=== PATIENT | male | born 1975 | race Caucasian/White ===

== ENCOUNTER 2018-12-22 13:16 | Inpatient (IN) ==
[2018-12-22] MEDS ORDERED: D5% in Water 1,000 ML IVC PRN ×3 (14:12→14:57)
[2018-12-22] MEDS ORDERED: Dextrose Gel 15 GM/37.5 ML TUBE PO PRN ×6 (14:12→14:57)
[2018-12-22] MEDS ORDERED: *HR* Dextrose 50 % in Water (Syg) 50 ML SYRINGE IVP PRN ×3 (14:12→14:57)
[2018-12-22] MEDS ORDERED: Acetaminophen 325 MG TABLET PO PRN (14:48)
[2018-12-22] MEDS ORDERED: Naloxone 0.4 MG/ML INJ IVP PRN (14:48)
[2018-12-22] MEDS ORDERED: Ondansetron 4 MG/2 ML VIAL IVP PRN (14:48)
--- NOTE | 2018-12-22 14:54 | Internal Med History&Physical ---
Date of Encounter: 12/22/18 Time of Encounter: 14:54 Internal Medicine - H&P: HPI Admitted From: Direct Admit Plans for Post Hospital Care: Home History of present illness: Mr. Hewitt is a 43 year old male hx diabetes and hypertension, diabetic foot ulcer. He was sent as a direct admit from the infectious disease specialists office where he was referred to due to his chronic diabetic foot ulcer and poor wound healing. Patient stated that he had several sessions of doing clinic when he had packing of the wound. He admits to being noncompliant with his diabetes- diet and medications. He could not recall his last A1c but thinks it was quite high. Overall he denies any fevers chills or leg pain. He has been admitted for further workup to rule out osteomyelitis per conversation with the infectious disease specialist we are not to start any antibiotics therapy until evaluated by the podiatry team and a surgical wound culture obtained. Past Med Surg Social Fam HX - Past Medical History Medical history: diabetes Additional medical history: neuropathy in feet Psychiatric history: anxiety - Past Surgical History Additional surgical history: right leg surgery with plates and screws. - Social History Smoking Status: Never smoker Smokeless Tobacco Status: No Alcohol use: none Drug use: none Internal Medicine - H&P: Meds Allergy/AdvReac Type Severity Reaction Status Date / Time doxycycline Allergy Vomiting Verified 12/22/18 13:49 All Systems PM: GENERAL: Denies fever, chills, fatigue or night sweats. DERMATOLOGIC: Denies itch, rash or lesions HEENT: Denies headache, blurriness, diplopia or decreased visual acuity, ear pain, tinnitus, rhinorrhea, sinus tenderness or sore throat RESPIRATORY: Denies SOB, cough, hemoptysis or pleuritic chest pain CARDIOVASCULAR: Denies chest pain, LE edema, palpitation or syncope GASTRO INTESTINAL: Denies cramps, nausea/vomiting, diarrhea or constipation, melena MUSCULOSKELATAL: Denies muscle pain/weakness, joint tenderness/pain or swelling PSYCH: Denies worsening anxiety, or depression NEURO: Denies vertigo, dizziness, or ataxia GENITURINARY: Denies dysuria, nocturia or urinary incontinence - Constitutional Vitals: Temp Pulse Resp BP Pulse Ox 97.6 F 60 17 121/71 96 12/22/18 14:03 12/22/18 14:03 12/22/18 14:03 12/22/18 14:03 12/22/18 14:03 Exam: GENERAL: NAD, A&O x3, pleasant and conversant SKIN: [place] warm dry No skin lesions or rashes, non-jaundiced EYES: EOMI, PERRLA, no sclera icterus HENT: Head atraumatic, no facial asymmetry, frontal and maxillary sinus non- tender, normal hearing, oropharynx and mucosa moist and without any exudates NECK: No cervical lymphadenopathy, trachea midline, thyroid is palpable does not appear enlarged LUNGS: vesicular breath sounds, clear to auscultation, no wheeze, rhonchi, rales or crackles. Non labored respirations HEART: Normal rate and rhythm, no murmurs or rubs ABDOMEN: soft, non-tender, non-distended, bowel sounds x 4 normoactive EXTRMITIES: No LE asymmetry, right foot ulcer noted at the posterior aspect of the right foot with mucopurulent drainage, No LE edema, pedal pulses 1+ and radial pulses 2 + and equal bilaterally NEURO: Speech and comprehension appears intact. PSYCH: Cooperative, non- anxious or irritable, mood and affect is appropriate Internal Med - H&P Results - Labs CBC & Chem 7: 12/22/18 15:02 12/22/18 15:02 - Assessment and Plan (1) Diabetic foot ulcer Current Visit: Yes Status: Acute Assessment and plan: Per conversation with ID specialist there is concern for osteomyelitis as such MRI of the left foot has been ordered, and he will rahter no antibiotics to be started until surgical culture is obtained. Patient is not septic and does not appear to be ill. An offical consult for infectious disease and podiatry placed appreciate the input Qualifiers: Diabetic foot ulcer location: heel Diabetes mellitus type: type 1 Laterality: left Non-pressure ulcer stage: unspecified non-pressure ulcer stage Qualified Code(s): E10.621 - Type 1 diabetes mellitus with foot ulcer; L97.429 - Non-pressure chronic ulcer of left heel and midfoot with unspecified severity (2) Diabetes mellitus with circulatory complication Current Visit: Yes Status: Acute Assessment and plan: Type I diabetic patient will place on insulin per protocol basal short-acting suspect noncompliance check A1c and monitor discussed with patient the importance of glycemic control for proper wound healing Qualifiers: Diabetes mellitus type: type 1 Qualified Code(s): E10.59 - Type 1 diabetes mellitus with other circulatory complications (3) Hypertension Current Visit: Yes Status: Acute Assessment and plan: Normotensive Qualifiers: Hypertension type: essential hypertension Qualified Code(s): I10 - Essential (primary) hypertension (4) DVT prophylaxis Current Visit: Yes Status: Acute Assessment and plan: SCDs given proposed plan for either debridement or wound exploration - Time Spent With Patient Total time spent is greater than 50% in coordination of care (as documented) at patient's floor/unit and/or counseling patient:
[2018-12-22 15:17] LABS: Basophils % 0.8 %; Eosinophils # 0.2 K/mcL (0.0-0.6); Hematocrit 38.4 % (37.5-50.1); Hemoglobin 12.2 g/dL (12.9-16.9); Lymphocytes # 1.6 K/mcL (0.6-4.6); Lymphocytes % 32.7 %; Mean Corpuscular HGB Conc 31.8 g/dL (31.6-35.5); Mean Corpuscular Hemoglobin 26.6 pg (28.0-33.3); Mean Corpuscular Volume 83.8 fL (83.0-100.0); Mean Platelet Volume 9.1 fL (9.4-12.4); Monocytes # 0.4 K/mcL (0.0-1.3); Monocytes % 7.3 %; Neutrophils # 2.8 K/mcL (1.6-8.9); Platelet Count 182 K/mcL (140-400); Red Blood Count 4.58 M/mcL (4.19-5.50); Red Cell Distribution Width 14.5 % (11.5-14.5); Segmented Neutrophils % 56.2 %
[2018-12-22 15:28] LABS: INR 1.1; Prothrombin Time 12.8 Seconds (9.4-12.1)
[2018-12-22 15:35] LABS: Alanine Aminotransferase 18 Units/L (7-52); Albumin 4.2 g/dL (3.5-5.7); Albumin/Globulin Ratio 1.3 (1.1-2.2); Alkaline Phosphatase 74 Units/L (34-104); Aspartate Amino Transferase 17 Units/L (13-39); BUN/Creatinine Ratio 21 (6-26); Bilirubin,Total 0.5 mg/dL (0.3-1.0); Blood Urea Nitrogen 15 mg/dL (6-20); Calcium 9.6 mg/dL (8.6-10.3); Carbon Dioxide 32 mEq/L (23-29); Chloride 98 mEq/L (98-107); Globulin 3.2 g/dL (2.4-3.5); Glucose 347 mg/dL (70-105); Magnesium 1.6 mg/dL (1.6-2.6); Osmolality,Calculated 295 (280-300); Potassium 4.7 mEq/L (3.5-5.1); Sodium 135 mEq/L (136-145); Total Protein 7.4 g/dL (6.4-8.9); eGFR For African Americans > 60 (> 60); eGFR For Non-African Americans > 60 (> 60)
[2018-12-22] MEDS ORDERED: Insulin LISPRO 300 UNITS/3 ML VIAL SQ SCH ×3 (16:30→21:00)
[2018-12-22] MEDS ORDERED: Insulin LISPRO 300 UNITS/3 ML VIAL SQ ONE (18:02)
[2018-12-22] MEDS ORDERED: Insulin DETEMIR 100 UNIT/ML X5UNITS SQ SCH (21:00)
[2018-12-23 04:10] LABS: Basophils % 0.6 %; Eosinophils # 0.2 K/mcL (0.0-0.6); Eosinophils % 3.6 %; Hematocrit 36.4 % (37.5-50.1); Hemoglobin 11.8 g/dL (12.9-16.9); Immature Granulocytes % 0.2 % (0-4); Lymphocytes # 1.4 K/mcL (0.6-4.6); Lymphocytes % 29.4 %; Mean Corpuscular HGB Conc 32.4 g/dL (31.6-35.5); Mean Corpuscular Hemoglobin 26.5 pg (28.0-33.3); Mean Corpuscular Volume 81.8 fL (83.0-100.0); Mean Platelet Volume 8.8 fL (9.4-12.4); Monocytes # 0.4 K/mcL (0.0-1.3); Monocytes % 8.5 %; Neutrophils # 2.7 K/mcL (1.6-8.9); Platelet Count 183 K/mcL (140-400); Red Blood Count 4.45 M/mcL (4.19-5.50); Red Cell Distribution Width 14.5 % (11.5-14.5); Segmented Neutrophils % 57.7 %; White Blood Count 4.7 K/mcL (4.3-11.1)
[2018-12-23 04:31] LABS: BUN/Creatinine Ratio 24 (6-26); Blood Urea Nitrogen 16 mg/dL (6-20); Calcium 9.3 mg/dL (8.6-10.3); Carbon Dioxide 30 mEq/L (23-29); Chloride 103 mEq/L (98-107); Glucose 201 mg/dL (70-105); Magnesium 1.5 mg/dL (1.6-2.6); Osmolality,Calculated 285 (280-300); Potassium 4.3 mEq/L (3.5-5.1); Sodium 134 mEq/L (136-145); eGFR For African Americans > 60 (> 60); eGFR For Non-African Americans > 60 (> 60)
[2018-12-23 06:52] VITALS: BP 114/68
[2018-12-23 07:27] LABS: Estimated Average Glucose 255 mg/dl
[2018-12-23] MEDS ORDERED: Insulin LISPRO 300 UNITS/3 ML VIAL SQ SCH ×3 (08:00→21:00)
--- NOTE | 2018-12-23 11:01 | Podiatry Consult Note ---
Date of Encounter: 12/23/18 Time of Encounter: 11:00 Assessment and Plan (1) Diabetic foot ulcer Current visit: Yes Status: Acute ASSESSMENT: abscess of the left achilles and possible osteomyelitis PLAN: Discussed plan for surgical intervention with patient- need for Incision and Drainage of the abscess of the left heel Patient states this "is not convenient for him and he is leaving" reports that he has things going on and is going to leave States he would rather "come back on his own terms and this is not working for him" Discussed that if he would choose to leave it would be against medical advice and I would not release him to leave Explained that due to the nature of the infection and his uncontrolled diabetes that this infection would likely worsen quicky and could cause loss of limb, sepsis or life. Patient verbalizes understanding and insists upon leaving Discussed with sudha, nurse and . All aware that patient is leaving AMA Sudha states he will be at bedside to send PO antibiotics which patient agrees to. Foot MRI 12/22/18 19:46 IMPRESSION: 1. Thickening of the Achilles tendon with small fluid collection of the posteromedial soft tissues extending to involve the medial aspect of the Achilles tendon. This collection measures 1.0 x 1.3 x 1.3 cm and is highly suspicious for abscess given patient history. Associated partial tearing of the Achilles at this site. 2. Mild patchy edema of the dorsal calcaneus at the Achilles insertion and also along the plantar calcaneus with patchy decreased T1 signal present. Findings suspicious for early changes of osteomyelitis given history of wound. 3. Diffuse subcutaneous edema. Correlate for cellulitis. 4. Intrasubstance signal in the intact deep fibers of the deltoid ligament complex which may reflect sequela of remote sprain. 5. Tenosynovitis of the intact posterior tibialis tendon. 6. Mild hindfoot and midfoot osteoarthritis with small tibiotalar and subtalar effusions. D/ / Marlon Vernon MD / Marlon Vernon MD Interpreting Provider: Marlon Vernon MD Qualifiers: Diabetic foot ulcer location: heel Diabetes mellitus type: type 1 Laterality: left Non-pressure ulcer stage: unspecified non-pressure ulcer stage Qualified Code(s): E10.621 - Type 1 diabetes mellitus with foot ulcer; L97.429 - Non-pressure chronic ulcer of left heel and midfoot with unspecified severity History of Present Illness HPI: Mr. Hewitt is a 43 year old male hx diabetes and hypertension, diabetic foot ulcer. He was sent as a direct admit from the infectious disease specialists office where he was referred to due to his chronic diabetic foot ulcer and poor wound healing. Per reports from ID, patient failed outpatient oral antibiotic therapy. He was scheduled to be evaluated for wound in podiatry office on 12/15 and n/s appointment. Patient reports he has been packing wound however He admits to being noncompliant with his diabetes-diet and medications. Overall he denies any fevers chills or leg pain. Podiatry has been consulted to manage wound, possible abscess and osteomyelitis Past Med Surg Social Fam HX - Past Medical History Medical history: diabetes Additional medical history: neuropathy in feet Psychiatric history: anxiety - Past Surgical History Additional surgical history: right leg surgery with plates and screws. - Social History Smoking Status: Never smoker Smokeless Tobacco Status: No Alcohol use: none Drug use: none Medications and Allergies Allergy/AdvReac Type Severity Reaction Status Date / Time doxycycline Allergy Vomiting Verified 12/22/18 13:49 All Systems Reviewed: as per HPI Physical Exam - Constitutional Vitals: Temp Pulse Resp BP Pulse Ox 97.6 F 76 15 114/68 95 12/23/18 06:48 12/23/18 06:48 12/23/18 06:48 12/23/18 06:48 12/23/18 06:48 Exam: Patient refused exam as he states he is leaving Results - Labs Result Diagrams: 12/23/18 04:00 12/23/18 04:00 Labs: Abnormal lab results Hgb 11.8 g/dL (12.9-16.9) L 12/23/18 04:00 Hct 36.4 % (37.5-50.1) L 12/23/18 04:00 MCV 81.8 fL (83.0-100.0) L 12/23/18 04:00 MCH 26.5 pg (28.0-33.3) L 12/23/18 04:00 MPV 8.8 fL (9.4-12.4) L 12/23/18 04:00 ESR 27 mm/hr (0-10) H 12/23/18 07:40 PT 12.8 Seconds (9.4-12.1) H 12/22/18 15:02 Sodium 134 mEq/L (136-145) L 12/23/18 04:00 Carbon Dioxide 30 mEq/L (23-29) H 12/23/18 04:00 Creatinine 0.67 mg/dL (0.70-1.30) L 12/23/18 04:00 Glucose 201 mg/dL (70-105) H 12/23/18 04:00 POC Glucose 114 mg/dL (70-99) H 12/23/18 00:48 Hemoglobin A1c 10.5 % (-5.6) H 12/23/18 04:00 Magnesium 1.5 mg/dL (1.6-2.6) L 12/23/18 04:00 H & H 12/22/18 12/23/18 Range/Units 15:02 04:00 Hgb 12.2 L 11.8 L (12.9-16.9) g/dL Hct 38.4 36.4 L (37.5-50.1) % All other labs normal. Consult Discharge Plan - Plan Referrals: Denisse Guzman [Primary Care Provider] -
--- NOTE | 2018-12-23 12:16 | Discharge Summary ---
- NOTES TO OUTPATIENT PROVIDER Notes to Outpatient Provider: Left AMA Date of Encounter: 12/23/18 Time of Encounter: 09:30 - Discharge Diagnosis (1) Osteomyelitis of ankle or foot, acute Priority: Primary Status: Acute Qualifiers: Laterality: left Qualified Code(s): M86.172 - Other acute osteomyelitis, left ankle and foot (2) Diabetic foot ulcer Priority: Secondary Status: Acute Qualifiers: Diabetic foot ulcer location: heel Diabetes mellitus type: type 1 Laterality: left Non-pressure ulcer stage: unspecified non-pressure ulcer stage Qualified Code(s): E10.621 - Type 1 diabetes mellitus with foot ulcer; L97.429 - Non-pressure chronic ulcer of left heel and midfoot with unspecified severity (3) Diabetes mellitus with circulatory complication Priority: Secondary Status: Acute Qualifiers: Diabetes mellitus type: type 1 Qualified Code(s): E10.59 - Type 1 diabetes mellitus with other circulatory complications (4) Hypertension Priority: Secondary Status: Acute Qualifiers: Hypertension type: essential hypertension Qualified Code(s): I10 - Essential (primary) hypertension (5) DVT prophylaxis Priority: Secondary Status: Acute Hospital course: Mr. Hewitt is a 43 year old male with hx diabetes and hypertension who was directly admitted from ID clinic due to the concern of infected L foot ulcer. MRI showed thickening of the Achilles tendon with adjacent abscess as well as findings compatible with early changes of osteomyelitis. He also had tenosynovitis of posterior tibialis tendon. Unfortunately, after discussing with podiatry, he declined to undergo I&D of the abscess or bone biopsy and also refused to be on IV abx. Prior to picking up the scripts for PO Abx, he left AMA after being informed of the risk of worsening infection, sepsis, possible amputation, or . Discharge discussed with: patient, medical social consultant - Time Spent with Patient Total time spent providing and/or coordinating discharge services: 26 mins - Discharge Medications Allergies/Adverse Reactions: Allergy/AdvReac Type Severity Reaction Status Date / Time doxycycline Allergy Vomiting Verified 12/22/18 13:49 Date of admission: 12/22/18 14:48 Primary care physician: Denisse Guzman Consults: 12/22/18 13:53 Consult to Podiatry [CONS] Routine Consulting Provider: [facility] Reason for Consult: non-healing abscess left foot Time Notified: 13:54 Call Completed: Yes 12/22/18 14:51 Consult to Infectious Diseases [CONS] Routine Consulting Provider: [facility] Reason for Consult: Established patient with diabetic foot ulcer Time Notified: 14:30 Call Completed: Yes - Constitutional Vitals: Temp Pulse Resp BP Pulse Ox 97.6 F 76 15 114/68 95 12/23/18 06:48 12/23/18 06:48 12/23/18 06:48 12/23/18 06:48 12/23/18 06:48 Exam: GENERAL: not in distress LUNGS: clear to auscultation HEART: Normal rate and rhythm, no murmurs or rubs ABDOMEN: soft, non-tender, non-distended, bowel sounds x 4 normoactive EXTRMITIES: open ulcer in the L achilles tendon with purulent drainage. NEURO: non-focal - Patient Status Disposition: Left Against Medical Advice Condition: Serious - Discharge Instructions Instructions: Diabetes Mellitus Type 2 in Adults (DC), Diabetic Foot Care (DC), Chronic Hypertension (DC) Follow Up With: Denisse Guzman [Primary Care Provider] -
--- NOTE | 2018-12-23 12:16 | Infectious Disease Consult ---
Infectious Disease-Consult - Encounter Date/Time Date of Encounter: 12/23/18 Time of Encounter: 11:00 - Data of Consult Patient: known to practice within the last 3 years Reason for consult: foot infection Consult date: 12/23/18 Requesting Physician: Kraig Forrester MD Primary Care Provider: Denisse Guzman - HPI HPI: Patient signed out AGAINST MEDICAL ADVICE before I could see him. - Results CBC & Chem 7: 12/23/18 04:00 12/23/18 04:00 - Exam Vitals: Temp Pulse Resp BP Pulse Ox 97.6 F 76 15 114/68 95 12/23/18 06:48 12/23/18 06:48 12/23/18 06:48 12/23/18 06:48 12/23/18 06:48 Gabapentin 800 mg PO TID 12/23/18 [History] Gabapentin [Neurontin] 100 mg PO TID 12/23/18 [History] Insulin Glargine [Lantus] 28 units SQ QAM 12/23/18 [History] Insulin LISPRO [HumaLOG] 0 units SQ TID 12/23/18 [History] Lisinopril [Zestril] 10 mg PO DAILY 12/23/18 [History] Montelukast [Singulair] 10 mg PO QPM 12/23/18 [History] Allergy/AdvReac Type Severity Reaction Status Date / Time doxycycline Allergy Vomiting Verified 12/23/18 12:47 Past Med Surg Social Fam HX - Past Medical History Medical history: diabetes Additional medical history: neuropathy in feet Psychiatric history: anxiety - Past Surgical History Additional surgical history: right leg surgery with plates and screws. - Social History Smoking Status: Never smoker Smokeless Tobacco Status: No Alcohol use: none Drug use: none Consult Discharge Plan - Plan Instructions: Diabetic Foot Care (DC), Diabetes Mellitus Type 2 in Adults (DC), Chronic Hypertension (DC) Referrals: Denisse Guzman [Primary Care Provider] -
[2018-12-23] MEDS ORDERED: Insulin DETEMIR 100 UNIT/ML X5UNITS SQ SCH (21:00)
== END 2018-12-23 11:50 | disposition left against medical advice (07) | DRG 344 ==
LOC: 3ANU → SUATTDRO 14:48
PROVIDERS: ADMIT Pharmacist; ATTEND Internal Medicine

== ENCOUNTER 2018-12-23 12:17 | Observation (INO) ==
[2018-12-23] MEDS ORDERED: 0.9 % Sodium Chloride 1,000 ML IVC ONE ×2 (12:28→13:42)
[2018-12-23 13:00] LABS: VBG HCO3 25 mEq/L (21-27); VBG PCO2 46 mmHg (41-51); VBG PH 7.35 pH Units (7.32-7.42); VBG PO2 36 mmHg (25-50)
[2018-12-23 13:01] LABS: Basophils # 0.1 K/mcL (0.0-0.2); Basophils % 0.5 %; Eosinophils # 0.1 K/mcL (0.0-0.6); Eosinophils % 1.1 %; Hematocrit 40.7 % (37.5-50.1); Hemoglobin 13.1 g/dL (12.9-16.9); Immature Granulocytes % 0.4 % (0-4); Lymphocytes % 17.5 %; Mean Corpuscular HGB Conc 32.2 g/dL (31.6-35.5); Mean Corpuscular Hemoglobin 26.6 pg (28.0-33.3); Mean Corpuscular Volume 82.7 fL (83.0-100.0); Mean Platelet Volume 9.3 fL (9.4-12.4); Monocytes # 0.5 K/mcL (0.0-1.3); Monocytes % 4.2 %; Neutrophils # 8.6 K/mcL (1.6-8.9); Platelet Count 269 K/mcL (140-400); Red Blood Count 4.92 M/mcL (4.19-5.50); Red Cell Distribution Width 14.6 % (11.5-14.5); Segmented Neutrophils % 76.3 %
[2018-12-23 13:03] LABS: White Blood Count 11.3 K/mcL (4.3-11.1)
[2018-12-23 13:20] LABS: Acetaminophen < 10 mcg/mL (10-20); Alanine Aminotransferase 19 Units/L (7-52); Albumin 4.2 g/dL (3.5-5.7); Albumin/Globulin Ratio 1.3 (1.1-2.2); Alkaline Phosphatase 70 Units/L (34-104); Aspartate Amino Transferase 16 Units/L (13-39); BUN/Creatinine Ratio 20 (6-26); Bilirubin,Total 0.8 mg/dL (0.3-1.0); Blood Urea Nitrogen 20 mg/dL (6-20); C-Reactive Protein < 5 mg/L (Less than 10); Carbon Dioxide 25 mEq/L (23-29); Chloride 97 mEq/L (98-107); Globulin 3.3 g/dL (2.4-3.5); Glucose 377 mg/dL (70-105); Osmolality,Calculated 300 (280-300); Potassium 3.8 mEq/L (3.5-5.1); Salicylate < 2.5 mg/dL (15.0-30.0); Sodium 136 mEq/L (136-145); Total Protein 7.5 g/dL (6.4-8.9); Troponin I < 0.03 ng/mL (< 0.04); eGFR For African Americans > 60 (> 60); eGFR For Non-African Americans > 60 (> 60)
[2018-12-23 13:21] LABS: INR 1.2; Prothrombin Time 13.5 Seconds (9.4-12.1)
[2018-12-23] MEDS ORDERED: Ondansetron 4 MG/2 ML VIAL IVP ONE (13:22)
[2018-12-23 13:24] LABS: Activated Partial Thrombo Time 28.2 Seconds (26.0-36.0)
[2018-12-23] MEDS ORDERED: Ondansetron 4 MG/2 ML VIAL ONE (13:25)
[2018-12-23] MEDS ORDERED: Vancomycin (wt based) 1,000 MG VIAL IV ONE (13:42)
[2018-12-23] MEDS ORDERED: Piperacillin/Tazobactam 3.375 GM in 0.9 % Sodium Chloride Mini Bag 100 ML IVPB ONE (13:42)
[2018-12-23] MEDS ORDERED: 0.9 % Sodium Chloride 500 ML IVC ONE (13:52)
[2018-12-23] MEDS ORDERED: Aspirin 325 MG TABLET PO ONE (14:05)
[2018-12-23] MEDS ORDERED: Naloxone 0.4 MG/ML INJ IVP PRN (14:39)
[2018-12-23] MEDS ORDERED: *HR* Dextrose 50 % in Water (Syg) 50 ML SYRINGE IVP PRN (14:56)
[2018-12-23] MEDS ORDERED: Dextrose Gel 15 GM/37.5 ML TUBE PO PRN ×2 (14:56)
[2018-12-23] MEDS ORDERED: D5% in Water 1,000 ML IVC PRN (14:56)
[2018-12-23] MEDS ORDERED: Insulin Regular, Human 100 UNIT/ML IV SCH (15:00)
[2018-12-23] MEDS ORDERED: Insulin Human Regular 8 UNIT in 0.9 % Sodium Chloride 10 ML IV ONE (15:30)
[2018-12-23] MEDS: Gabapentin 100 MG CAPSULE PO SCH ×2 (16:19→20:17)
[2018-12-23] MEDS: Gabapentin 400 MG CAPSULE PO SCH ×2 (16:19→20:17)
[2018-12-23] MEDS: Ringers Solution, Lactated 1,000 ML IVC SCH (16:23)
[2018-12-23] MEDS ORDERED: Insulin LISPRO 300 UNITS/3 ML VIAL SQ SCH ×2 (16:30→17:00)
[2018-12-23 18:09] LABS: Bilirubin,Urine Negative (Negative); Blood,Urine Negative (Negative); Clarity,Urine Clear (Clear); Color,Urine Yellow (Yellow); Glucose,Urine (UA) >=1000 mg/dL (Normal); Ketones,Urine 40 mg/dL (Negative); Leukocyte Esterase,Urine Negative (Negative); Nitrite,Urine Negative (Negative); Protein,Urine Trace mg/dL (Neg-Trace); Specific Gravity,Urine 1.022 (1.010-1.025); Urobilinogen,Urine Normal (Normal)
[2018-12-23 18:28] LABS: Amphetamine Screen,Urine Negative ng/mL (Cutoff=1000); Barbiturate Screen,Urine Negative ng/mL (Cutoff=200); Benzodiazepines Screen,Urine Negative ng/mL (Cutoff=200); Cannabinoid Screen,Urine Negative ng/mL (Cutoff = 50); Cocaine Screen,Urine Negative ng/mL (Cutoff= 300); Opiate Screen,Urine Negative ng/mL (Cutoff=300); Phencyclidine Screen,Urine Negative ng/mL (Cutoff=25)
[2018-12-23] MEDS: traMADol 50 MG TABLET PO PRN (20:45)
[2018-12-23] MEDS ORDERED: Insulin DETEMIR 100 UNIT/ML X5UNITS SQ SCH (21:00)
[2018-12-23] MEDS: Piperacillin/Tazobactam 3.375 GM in 0.9 % Sodium Chloride Mini Bag 100 ML IVPB SCH (23:07)
[2018-12-24 03:46] LABS: BUN/Creatinine Ratio 27 (6-26); Blood Urea Nitrogen 23 mg/dL (6-20); Calcium 8.8 mg/dL (8.6-10.3); Carbon Dioxide 20 mEq/L (23-29); Chloride 100 mEq/L (98-107); Glucose 408 mg/dL (70-105); Magnesium 1.8 mg/dL (1.6-2.6); Osmolality,Calculated 293 (280-300); Potassium 4.6 mEq/L (3.5-5.1); Sodium 131 mEq/L (136-145); eGFR For African Americans > 60 (> 60); eGFR For Non-African Americans > 60 (> 60)
[2018-12-24] MEDS: Ringers Solution, Lactated 1,000 ML IVC SCH (05:20)
[2018-12-24] MEDS: Insulin LISPRO 300 UNITS/3 ML VIAL SQ SCH ×2 (05:54→11:58)
[2018-12-24 06:00] LABS: Basophils % 0.6 %; Eosinophils # 0.1 K/mcL (0.0-0.6); Eosinophils % 1.4 %; Hematocrit 31.9 % (37.5-50.1); Immature Granulocytes % 0.4 % (0-4); Lymphocytes # 1.8 K/mcL (0.6-4.6); Mean Corpuscular HGB Conc 33.2 g/dL (31.6-35.5); Mean Corpuscular Volume 81.2 fL (83.0-100.0); Mean Platelet Volume 9.1 fL (9.4-12.4); Monocytes # 0.6 K/mcL (0.0-1.3); Monocytes % 8.5 %; Neutrophils # 4.4 K/mcL (1.6-8.9); Platelet Count 171 K/mcL (140-400); Red Blood Count 3.93 M/mcL (4.19-5.50); Red Cell Distribution Width 14.4 % (11.5-14.5); Segmented Neutrophils % 63.1 %; White Blood Count 6.9 K/mcL (4.3-11.1)
[2018-12-24] MEDS ORDERED: *HR* Heparin 5,000 UNIT/ML VIAL SQ SCH (06:00)
[2018-12-24 06:03] LABS: Hemoglobin 10.6 g/dL (12.9-16.9)
[2018-12-24] MEDS ORDERED: Acetaminophen IV 500 MG/50 ML INFUS..BTL IVPB ONE (06:03)
[2018-12-24] MEDS: Piperacillin/Tazobactam 3.375 GM in 0.9 % Sodium Chloride Mini Bag 100 ML IVPB SCH (08:10)
[2018-12-24] MEDS: Gabapentin 400 MG CAPSULE PO SCH (08:17)
[2018-12-24] MEDS: Gabapentin 100 MG CAPSULE PO SCH (08:17)
[2018-12-24 11:23] VITALS: BP 136/37
[2018-12-24] MEDS: traMADol 50 MG TABLET PO PRN (12:02)
[2018-12-24] MEDS ORDERED: Aminoglycoside Consult 1 EACH MC ONE (14:43)
== END 2018-12-24 14:44 | disposition other institution (70) ==
LOC: EMEROOARM 12:17 → 3BNU 12:17 → SUATTDRO 13:54 → 3BNU 14:35
PROVIDERS: ADMIT Internal Medicine; ATTEND Internal Medicine

== ENCOUNTER 2021-02-23 02:07 | Inpatient (IN) ==
[2021-02-23] MEDS ORDERED: Naloxone 0.4 MG/ML INJ IVP PRN (04:31)
[2021-02-23] MEDS ORDERED: Melatonin 3 MG TABLET PO PRN (04:31)
[2021-02-23] MEDS ORDERED: *HR* Dextrose 50 % in Water (Syg) 50 ML SYRINGE IVP PRN (04:33)
[2021-02-23] MEDS ORDERED: D5% in Water 1,000 ML IVC PRN (04:33)
[2021-02-23] MEDS ORDERED: Dextrose Gel 15 GM/37.5 ML TUBE PO PRN ×2 (04:33)
[2021-02-23] MEDS: *HR* OxyCODONE Immed Rel 5 MG TABLET PO PRN ×4 (05:32→20:23)
[2021-02-23] MEDS: *HR* Heparin 5,000 UNIT/ML VIAL SQ SCH ×2 (05:33→16:54)
[2021-02-23] MEDS: Insulin LISPRO 300 UNITS/3 ML VIAL SUBQ SCH ×3 (05:43→16:54)
[2021-02-23] MEDS ORDERED: Acetaminophen 325 MG TABLET PO PRN (06:00)
[2021-02-23 08:55] LABS: Basophils % 0.5 %; Eosinophils # 0.1 K/mcL (0.0-0.6); Hematocrit 32.8 % (37.5-50.1); Immature Granulocytes % 0.3 % (0-4); Lymphocytes # 1.4 K/mcL (0.6-4.6); Lymphocytes % 21.5 %; Mean Corpuscular HGB Conc 33.5 g/dL (31.6-35.5); Mean Corpuscular Volume 80.4 fL (83.0-100.0); Monocytes # 0.9 K/mcL (0.0-1.3); Monocytes % 13.7 %; Neutrophils # 4.1 K/mcL (1.6-8.9); Platelet Count 197 K/mcL (140-400); Red Blood Count 4.08 M/mcL (4.19-5.50); Red Cell Distribution Width 13.3 % (11.5-14.5); White Blood Count 6.7 K/mcL (4.3-11.1)
[2021-02-23] MEDS: *HR* HYDROcodone/Acet 5/325 mg TABLET PO PRN ×2 (09:12→18:31)
[2021-02-23 10:55] LABS: BUN/Creatinine Ratio 15 (6-26); Blood Urea Nitrogen 11 mg/dL (6-20); C-Reactive Protein 150 mg/L (Less than 10); Calcium 9.2 mg/dL (8.6-10.3); Carbon Dioxide 30 mEq/L (23-29); Chloride 100 mEq/L (98-107); Glucose 98 mg/dL (70-105); Osmolality,Calculated 283 (280-300); Potassium 3.8 mEq/L (3.5-5.1); Sodium 137 mEq/L (136-145); eGFR For African Americans > 60 (> 60); eGFR For Non-African Americans > 60 (> 60)
[2021-02-23] MEDS: Piperacillin/Tazobactam 3.375 GM in 0.9 % Sodium Chloride Mini Bag 100 ML IVPB SCH ×2 (11:07→20:23)
[2021-02-23] MEDS: Vancomycin 1,250 MG/262.5 ML IV.SOLN IVPB SCH (11:08)
[2021-02-23] MEDS ORDERED: Ketorolac 30 MG/ML VIAL IVP ONE (11:27)
[2021-02-23 16:38] LABS: Source,Synovial Fluid right knee
[2021-02-23 17:07] LABS: Appearance,Synovial Fluid Hazy (Clear-Hazy); Color,Synovial Fluid Straw (Straw)
[2021-02-23 21:26] LABS: Lyme Disease Total Antibody Negative (Negative)
[2021-02-23 21:39] LABS: Rheumatoid Factor < 10 IU/mL (Less than 14)
[2021-02-23] MEDS ORDERED: Alteplase (Cathflo) 10 MG in 0.9 % Sodium Chloride 50 ML IVP ONE (22:07)
[2021-02-23] MEDS ORDERED: *HR* Alteplase (Cathflo) 2 MG VIAL IVP ONE (22:30)
[2021-02-23] MEDS ORDERED: Water for inj. (sterile) 10 ML ONE (22:39)
[2021-02-23] MEDS ORDERED: 0.9 % Sodium Chloride 500 ML ONE (23:31)
[2021-02-24] MEDS: *HR* OxyCODONE Immed Rel 5 MG TABLET PO PRN ×5 (00:16→21:15)
[2021-02-24] MEDS ORDERED: *HR* Alteplase (Cathflo) 2 MG VIAL IVP ONE (00:35)
[2021-02-24] MEDS: Insulin LISPRO 300 UNITS/3 ML VIAL SUBQ SCH ×5 (00:46→21:39)
[2021-02-24] MEDS ORDERED: 0.9 % Sodium Chloride 500 ML IVC ONE (00:55)
[2021-02-24] MEDS: Vancomycin 1,250 MG/262.5 ML IV.SOLN IVPB SCH ×2 (02:11→15:50)
[2021-02-24 02:26] LABS: Basophils % 0.4 %; Eosinophils # 0.1 K/mcL (0.0-0.6); Eosinophils % 2.1 %; Hematocrit 29.3 % (37.5-50.1); Hemoglobin 9.9 g/dL (12.9-16.9); Immature Granulocytes % 0.2 % (0-4); Lymphocytes # 1.6 K/mcL (0.6-4.6); Lymphocytes % 28.6 %; Mean Corpuscular HGB Conc 33.8 g/dL (31.6-35.5); Mean Corpuscular Hemoglobin 27.5 pg (28.0-33.3); Mean Corpuscular Volume 81.4 fL (83.0-100.0); Mean Platelet Volume 9.2 fL (9.4-12.4); Monocytes # 0.6 K/mcL (0.0-1.3); Neutrophils # 3.4 K/mcL (1.6-8.9); Platelet Count 217 K/mcL (140-400); Red Cell Distribution Width 12.9 % (11.5-14.5); Segmented Neutrophils % 58.7 %; White Blood Count 5.7 K/mcL (4.3-11.1)
[2021-02-24 02:43] LABS: BUN/Creatinine Ratio 19 (6-26); Blood Urea Nitrogen 14 mg/dL (6-20); Calcium 8.5 mg/dL (8.6-10.3); Carbon Dioxide 29 mEq/L (23-29); Chloride 99 mEq/L (98-107); Glucose 292 mg/dL (70-105); Osmolality,Calculated 285 (280-300); Potassium 3.9 mEq/L (3.5-5.1); Sodium 132 mEq/L (136-145); eGFR For African Americans > 60 (> 60); eGFR For Non-African Americans > 60 (> 60)
[2021-02-24] MEDS: Piperacillin/Tazobactam 3.375 GM in 0.9 % Sodium Chloride Mini Bag 100 ML IVPB SCH ×3 (03:16→23:56)
[2021-02-24] MEDS: *HR* Heparin 5,000 UNIT/ML VIAL SQ SCH ×2 (05:12→17:24)
[2021-02-24] MEDS ORDERED: Insulin DETEMIR 100 UNIT/ML X5UNITS SUBQ SCH (10:30)
[2021-02-24] MEDS ORDERED: Lidocaine/EPI 1:100k 2% 20 ML VIAL ONE (10:52)
[2021-02-24] MEDS ORDERED: Lidocaine/EPI 1:100k 1% 20 ML VIAL ONE (10:54)
[2021-02-24] MEDS ORDERED: *HR* Midazolam HCl 2 MG/2 ML VIAL ONE (11:07)
[2021-02-24] MEDS ORDERED: *HR* FentaNYL (PF) 100 MCG/2 ML VIAL ONE (11:07)
[2021-02-24] MEDS ORDERED: Lidocaine -MPF 2% 5 ML VIAL ONE (11:07)
[2021-02-24] MEDS ORDERED: Famotidine 20 MG/2 ML VIAL IVP ONE (11:12)
[2021-02-24] MEDS ORDERED: Acetaminophen IV 1,000 MG/100 ML BAG IVPB ONE (11:12)
[2021-02-24] MEDS ORDERED: Insulin Human Regular 3 UNIT in 0.9 % Sodium Chloride 10 ML IV ONE (11:25)
[2021-02-24] MEDS ORDERED: *HR* EPINEPHrine 30 MG/30 ML MDV ONE (12:01)
[2021-02-24] MEDS ORDERED: Ondansetron 4 MG/2 ML VIAL IVP PRN (12:23)
[2021-02-24] MEDS ORDERED: *HR* OxyCODONE Immed Rel 5 MG TABLET PO PRN (12:23)
[2021-02-24] MEDS ORDERED: *HR* HYDROmorphone PF 0.5 MG/0.5 ML SYRINGE IVP PRN (12:23)
[2021-02-24] MEDS ORDERED: Ondansetron 4 MG/2 ML VIAL ONE (13:01)
[2021-02-24] MEDS ORDERED: *HR* HYDROMORPHONE 2 MG/ML VIAL ONE (13:10)
[2021-02-24] MEDS ORDERED: Lidocaine/EPI 1:100k 1% 50 ML VIAL ONE (13:18)
[2021-02-24] MEDS ORDERED: Vancomycin 1,250 MG/262.5 ML IV.SOLN IVPB SCH (14:00)
[2021-02-24 14:48] LABS: Source,Synovial Fluid RIGHT KNEE
[2021-02-24 15:22] LABS: Appearance,Synovial Fluid Cloudy (Clear-Hazy); Color,Synovial Fluid Straw (Straw)
[2021-02-24] MEDS ORDERED: Perflutren Lipid Microsphere 1.3 ML in 0.9 % Sodium Chloride 8.7 ML IVP PRN (16:11)
[2021-02-24] MEDS: Ringers Solution, Lactated 1,000 ML IVC SCH (19:46)
[2021-02-25] MEDS: *HR* OxyCODONE Immed Rel 5 MG TABLET PO PRN ×6 (01:23→23:57)
[2021-02-25 05:18] LABS: Hematocrit 31.9 % (37.5-50.1); Hemoglobin 10.6 g/dL (12.9-16.9); Immature Granulocytes % 0.4 % (0-4); Lymphocytes # 1.1 K/mcL (0.6-4.6); Lymphocytes % 14.1 %; Mean Corpuscular HGB Conc 33.2 g/dL (31.6-35.5); Mean Corpuscular Hemoglobin 27.7 pg (28.0-33.3); Mean Corpuscular Volume 83.3 fL (83.0-100.0); Mean Platelet Volume 9.3 fL (9.4-12.4); Monocytes # 0.3 K/mcL (0.0-1.3); Neutrophils # 6.4 K/mcL (1.6-8.9); Platelet Count 277 K/mcL (140-400); Red Blood Count 3.83 M/mcL (4.19-5.50); Red Cell Distribution Width 12.9 % (11.5-14.5); Segmented Neutrophils % 81.5 %; White Blood Count 7.8 K/mcL (4.3-11.1)
[2021-02-25 05:52] LABS: BUN/Creatinine Ratio 26 (6-26); Blood Urea Nitrogen 22 mg/dL (6-20); Calcium 8.5 mg/dL (8.6-10.3); Carbon Dioxide 21 mEq/L (23-29); Chloride 96 mEq/L (98-107); Glucose 463 mg/dL (70-105); Osmolality,Calculated 294 (280-300); Potassium 4.7 mEq/L (3.5-5.1); Sodium 130 mEq/L (136-145); Vancomycin,Trough 7 mcg/mL (5-10); eGFR For African Americans > 60 (> 60); eGFR For Non-African Americans > 60 (> 60)
[2021-02-25] MEDS: *HR* Heparin 5,000 UNIT/ML VIAL SQ SCH ×2 (06:05→17:01)
[2021-02-25] MEDS: Vancomycin 1,500 MG/265 ML IV.SOLN IVPB SCH ×2 (06:26→19:10)
[2021-02-25] MEDS: Vancomycin 1,250 MG/262.5 ML IV.SOLN IVPB SCH (06:36)
[2021-02-25] MEDS ORDERED: Ringers Solution, Lactated 500 ML IVC ONE ×2 (08:37→09:00)
[2021-02-25] MEDS: Piperacillin/Tazobactam 3.375 GM in 0.9 % Sodium Chloride Mini Bag 100 ML IVPB SCH ×2 (09:18→17:00)
[2021-02-25] MEDS: Insulin LISPRO 300 UNITS/3 ML VIAL SUBQ SCH ×4 (09:21→20:57)
[2021-02-25] MEDS: Insulin DETEMIR 100 UNIT/ML X5UNITS SUBQ SCH (10:29)
[2021-02-25] MEDS: *HR* HYDROcodone/Acet 5/325 mg TABLET PO PRN ×2 (12:45→20:56)
[2021-02-25] MEDS: Ringers Solution, Lactated 1,000 ML IVC SCH (12:48)
[2021-02-26] MEDS: *HR* HYDROcodone/Acet 5/325 mg TABLET PO PRN ×2 (02:55→20:42)
[2021-02-26 03:43] LABS: BUN/Creatinine Ratio 24 (6-26); Blood Urea Nitrogen 17 mg/dL (6-20); Calcium 8.4 mg/dL (8.6-10.3); Carbon Dioxide 33 mEq/L (23-29); Chloride 98 mEq/L (98-107); Glucose 349 mg/dL (70-105); Osmolality,Calculated 291 (280-300); Potassium 4.4 mEq/L (3.5-5.1); Sodium 133 mEq/L (136-145); eGFR For African Americans > 60 (> 60); eGFR For Non-African Americans > 60 (> 60)
[2021-02-26 03:44] LABS: Basophils % 0.6 %; Eosinophils # 0.2 K/mcL (0.0-0.6); Eosinophils % 2.1 %; Hematocrit 30.1 % (37.5-50.1); Hemoglobin 9.8 g/dL (12.9-16.9); Immature Granulocytes % 0.4 % (0-4); Lymphocytes # 2.6 K/mcL (0.6-4.6); Lymphocytes % 35.2 %; Mean Corpuscular HGB Conc 32.6 g/dL (31.6-35.5); Mean Corpuscular Hemoglobin 26.8 pg (28.0-33.3); Mean Corpuscular Volume 82.2 fL (83.0-100.0); Mean Platelet Volume 9.3 fL (9.4-12.4); Monocytes # 0.5 K/mcL (0.0-1.3); Monocytes % 6.6 %; Platelet Count 329 K/mcL (140-400); Red Blood Count 3.66 M/mcL (4.19-5.50); Segmented Neutrophils % 55.1 %; White Blood Count 7.3 K/mcL (4.3-11.1)
[2021-02-26] MEDS: *HR* OxyCODONE Immed Rel 5 MG TABLET PO PRN ×5 (05:40→22:23)
[2021-02-26] MEDS: Vancomycin 1,500 MG/265 ML IV.SOLN IVPB SCH ×2 (05:41→20:41)
[2021-02-26] MEDS: *HR* Heparin 5,000 UNIT/ML VIAL SQ SCH (05:48)
[2021-02-26] MEDS: Insulin LISPRO 300 UNITS/3 ML VIAL SUBQ SCH ×4 (07:38→20:43)
[2021-02-26] MEDS: Insulin DETEMIR 100 UNIT/ML X5UNITS SUBQ SCH (09:13)
[2021-02-26] MEDS ORDERED: Ketorolac 30 MG/ML VIAL IVP ONE (09:43)
[2021-02-26] MEDS: Ringers Solution, Lactated 1,000 ML IVC SCH (17:25)
[2021-02-26] MEDS ORDERED: Vancomycin 1,750 MG/517.5 ML IV.SOLN IVPB SCH (21:00)
[2021-02-27] MEDS: *HR* OxyCODONE Immed Rel 5 MG TABLET PO PRN ×5 (04:57→23:09)
[2021-02-27] MEDS: *HR* Enoxaparin 40 MG/0.4 ML SYRINGE SQ SCH (04:58)
[2021-02-27] MEDS: Insulin DETEMIR 100 UNIT/ML X5UNITS SUBQ SCH (09:33)
[2021-02-27] MEDS: Insulin LISPRO 300 UNITS/3 ML VIAL SUBQ SCH ×4 (09:33→21:01)
[2021-02-27 11:03] LABS: BUN/Creatinine Ratio 17 (6-26); Blood Urea Nitrogen 12 mg/dL (6-20); Calcium 9.1 mg/dL (8.6-10.3); Carbon Dioxide 32 mEq/L (23-29); Chloride 96 mEq/L (98-107); Glucose 395 mg/dL (70-105); Osmolality,Calculated 292 (280-300); Potassium 4.4 mEq/L (3.5-5.1); Sodium 133 mEq/L (136-145); eGFR For African Americans > 60 (> 60); eGFR For Non-African Americans > 60 (> 60)
[2021-02-27] MEDS: CeFAZolin 2,000 MG/120 ML BAG IVPB SCH ×2 (13:34→21:04)
[2021-02-27] MEDS: Ringers Solution, Lactated 1,000 ML IVC SCH (21:00)
[2021-02-27] MEDS: *HR* HYDROcodone/Acet 5/325 mg TABLET PO PRN (21:25)
[2021-02-28] MEDS: CeFAZolin 2,000 MG/120 ML BAG IVPB SCH ×3 (02:28→17:50)
[2021-02-28] MEDS: *HR* HYDROcodone/Acet 5/325 mg TABLET PO PRN (02:32)
[2021-02-28 03:26] LABS: Basophils % 0.6 %; Eosinophils # 0.2 K/mcL (0.0-0.6); Eosinophils % 3.4 %; Hemoglobin 10.8 g/dL (12.9-16.9); Immature Granulocytes % 0.6 % (0-4); Lymphocytes # 2.6 K/mcL (0.6-4.6); Lymphocytes % 40.4 %; Mean Corpuscular HGB Conc 32.7 g/dL (31.6-35.5); Mean Corpuscular Hemoglobin 26.7 pg (28.0-33.3); Mean Corpuscular Volume 81.5 fL (83.0-100.0); Mean Platelet Volume 8.6 fL (9.4-12.4); Monocytes # 0.5 K/mcL (0.0-1.3); Monocytes % 7.5 %; Neutrophils # 3.1 K/mcL (1.6-8.9); Platelet Count 365 K/mcL (140-400); Red Blood Count 4.05 M/mcL (4.19-5.50); Red Cell Distribution Width 13.1 % (11.5-14.5); Segmented Neutrophils % 47.5 %; White Blood Count 6.4 K/mcL (4.3-11.1)
[2021-02-28 03:45] LABS: BUN/Creatinine Ratio 19 (6-26); Blood Urea Nitrogen 14 mg/dL (6-20); Calcium 8.9 mg/dL (8.6-10.3); Carbon Dioxide 30 mEq/L (23-29); Chloride 101 mEq/L (98-107); Glucose 193 mg/dL (70-105); Osmolality,Calculated 290 (280-300); Potassium 3.9 mEq/L (3.5-5.1); Sodium 137 mEq/L (136-145); eGFR For African Americans > 60 (> 60); eGFR For Non-African Americans > 60 (> 60)
[2021-02-28] MEDS: *HR* Enoxaparin 40 MG/0.4 ML SYRINGE SQ SCH (05:15)
[2021-02-28] MEDS: *HR* OxyCODONE Immed Rel 5 MG TABLET PO PRN ×4 (05:15→18:03)
[2021-02-28] MEDS: Insulin DETEMIR 100 UNIT/ML X5UNITS SUBQ SCH (08:49)
[2021-02-28] MEDS: Insulin LISPRO 300 UNITS/3 ML VIAL SUBQ SCH ×2 (08:51→13:07)
[2021-02-28 16:08] VITALS: BP 136/82; PULSE 84; TEMP 97.5; O2SAT 99
== END 2021-02-28 19:12 | disposition home health service (06) | DRG 317 ==
LOC: 3NENU → SUATTDRO 03:53
PROVIDERS: ADMIT Internal Medicine; ATTEND Student in an Organized Health Care Education/Training Program

== ENCOUNTER 2021-09-17 21:10 | Inpatient (IN) ==
[2021-09-17] MEDS ORDERED: Ondansetron 4 MG/2 ML VIAL IVP PRN (23:44)
[2021-09-17] MEDS ORDERED: Melatonin 3 MG TABLET PO PRN (23:44)
[2021-09-17] MEDS ORDERED: Naloxone 0.4 MG/ML INJ IVP PRN (23:44)
[2021-09-17] MEDS ORDERED: Acetaminophen 325 MG TABLET PO PRN (23:44)
[2021-09-18] MEDS ORDERED: D5% in Water 1,000 ML IVC PRN (00:46)
[2021-09-18] MEDS ORDERED: *HR* Dextrose 50 % in Water (Syg) 50 ML SYRINGE IVP PRN (00:46)
[2021-09-18] MEDS ORDERED: Dextrose Gel 15 GM/37.5 ML TUBE PO PRN ×2 (00:46)
[2021-09-18] MEDS: Cefepime HCl 2,000 MG in 0.9 % Sodium Chloride 20 ML IVP SCH ×2 (04:06→16:29)
[2021-09-18 04:10] LABS: Basophils % 0.3 %; Eosinophils # 0.1 K/mcL (0.0-0.6); Eosinophils % 0.4 %; Hematocrit 27.2 % (37.5-50.1); Hemoglobin 8.8 g/dL (12.9-16.9); Immature Granulocytes % 0.4 % (0-4); Lymphocytes # 1.4 K/mcL (0.6-4.6); Lymphocytes % 10.1 %; Mean Corpuscular HGB Conc 32.4 g/dL (31.6-35.5); Mean Corpuscular Hemoglobin 26.2 pg (28.0-33.3); Mean Platelet Volume 9.7 fL (9.4-12.4); Monocytes # 1.3 K/mcL (0.0-1.3); Monocytes % 9.1 %; Neutrophils # 10.9 K/mcL (1.6-8.9); Platelet Count 237 K/mcL (140-400); Red Blood Count 3.36 M/mcL (4.19-5.50); Red Cell Distribution Width 13.2 % (11.5-14.5); Segmented Neutrophils % 79.7 %; White Blood Count 13.7 K/mcL (4.3-11.1)
[2021-09-18 04:27] LABS: Alanine Aminotransferase 11 Units/L (7-52); Albumin 2.8 g/dL (3.5-5.7); Albumin/Globulin Ratio 0.8 (1.1-2.2); Alkaline Phosphatase 76 Units/L (34-104); Aspartate Amino Transferase 14 Units/L (13-39); BUN/Creatinine Ratio 21 (6-26); Bilirubin,Total 0.4 mg/dL (0.3-1.0); Blood Urea Nitrogen 16 mg/dL (6-20); Calcium 8.1 mg/dL (8.6-10.3); Carbon Dioxide 26 mEq/L (23-29); Chloride 96 mEq/L (98-107); Globulin 3.4 g/dL (2.4-3.5); Glucose 301 mg/dL (70-105); Magnesium 1.4 mg/dL (1.6-2.6); Osmolality,Calculated 280 (280-300); Phosphorous 2.9 mg/dL (2.7-4.5); Sodium 129 mEq/L (136-145); Total Protein 6.2 g/dL (6.4-8.9); eGFR For African Americans > 60 (> 60); eGFR For Non-African Americans > 60 (> 60)
[2021-09-18 04:29] LABS: INR 1.4; Prothrombin Time 16.1 Seconds (9.4-12.1)
[2021-09-18 04:31] LABS: Activated Partial Thrombo Time 28.2 Seconds (26.0-36.0)
[2021-09-18 04:32] LABS: Troponin I 0.08 ng/mL (< 0.04)
[2021-09-18] MEDS ORDERED: Perflutren Lipid Microsphere 1.3 ML in 0.9 % Sodium Chloride 8.7 ML IVP PRN (05:09)
[2021-09-18] MEDS: Insulin LISPRO 300 UNITS/3 ML VIAL SUBQ SCH ×4 (05:48→21:16)
[2021-09-18 08:36] LABS: Bacteria,Urine Few per hpf (None-Few); Bilirubin,Urine Negative (Negative); Blood,Urine Trace (Negative); Clarity,Urine Clear (Clear); Color,Urine Light-Yellow (Yellow); Glucose,Urine (UA) >=1000 mg/dL (Normal); Ketones,Urine Trace mg/dL (Negative); Leukocyte Esterase,Urine Negative (Negative); Mucus,Urine Few per lpf (None-Few); Nitrite,Urine Negative (Negative); PH,Urine 6.5 pH Units (5.0-8.0); Protein,Urine 50 mg/dL (Neg-Trace); RBC,Urine 0-3 per hpf (0-3); Specific Gravity,Urine 1.024 (1.010-1.025); Urobilinogen,Urine Normal (Normal); WBC,Urine 0-3 per hpf (0-3)
[2021-09-18] MEDS: Vancomycin 1,250 MG/262.5 ML IV.SOLN IVPB SCH ×2 (10:20→21:17)
[2021-09-18 10:39] LABS: BUN/Creatinine Ratio 19 (6-26); Blood Urea Nitrogen 12 mg/dL (6-20); Calcium 8.6 mg/dL (8.6-10.3); Carbon Dioxide 23 mEq/L (23-29); Chloride 97 mEq/L (98-107); Glucose 212 mg/dL (70-105); Osmolality,Calculated 278 (280-300); Potassium 3.9 mEq/L (3.5-5.1); Sodium 131 mEq/L (136-145); eGFR For African Americans > 60 (> 60); eGFR For Non-African Americans > 60 (> 60)
[2021-09-18] MEDS ORDERED: Iopamidol - 370 500 ML MLS IVP ONE (11:52)
[2021-09-18 14:14] LABS: C-Reactive Protein 275 mg/L (Less than 10)
[2021-09-18] MEDS: *HR* Heparin 5,000 UNIT/ML VIAL SQ SCH (17:19)
[2021-09-18] MEDS: Gabapentin 400 MG CAPSULE PO SCH (21:16)
[2021-09-19] MEDS: Cefepime HCl 2,000 MG in 0.9 % Sodium Chloride 20 ML IVP SCH ×3 (04:48→23:47)
[2021-09-19 05:14] LABS: Basophils # 0.1 K/mcL (0.0-0.2); Basophils % 0.4 %; Eosinophils # 0.1 K/mcL (0.0-0.6); Hematocrit 28.4 % (37.5-50.1); Hemoglobin 9.1 g/dL (12.9-16.9); Immature Granulocytes % 1.3 % (0-4); Lymphocytes # 1.5 K/mcL (0.6-4.6); Lymphocytes % 11.4 %; Mean Corpuscular Hemoglobin 26.1 pg (28.0-33.3); Mean Corpuscular Volume 81.6 fL (83.0-100.0); Mean Platelet Volume 9.5 fL (9.4-12.4); Monocytes # 1.2 K/mcL (0.0-1.3); Monocytes % 8.9 %; Neutrophils # 10.3 K/mcL (1.6-8.9); Platelet Count 330 K/mcL (140-400); Red Blood Count 3.48 M/mcL (4.19-5.50); Red Cell Distribution Width 13.5 % (11.5-14.5); White Blood Count 13.4 K/mcL (4.3-11.1)
[2021-09-19] MEDS: *HR* Heparin 5,000 UNIT/ML VIAL SQ SCH ×2 (05:17→17:24)
[2021-09-19 05:26] LABS: Estimated Average Glucose 258 mg/dl; Hemoglobin A1C 10.6 %
[2021-09-19 05:31] LABS: BUN/Creatinine Ratio 11 (6-26); Blood Urea Nitrogen 9 mg/dL (6-20); Calcium 8.5 mg/dL (8.6-10.3); Carbon Dioxide 27 mEq/L (23-29); Chloride 94 mEq/L (98-107); Glucose 351 mg/dL (70-105); Osmolality,Calculated 281 (280-300); Potassium 4.2 mEq/L (3.5-5.1); Sodium 129 mEq/L (136-145); eGFR For African Americans > 60 (> 60); eGFR For Non-African Americans > 60 (> 60)
[2021-09-19] MEDS ORDERED: 0.9 % Sodium Chloride 1,000 ML IVC SCH (08:00)
[2021-09-19] MEDS ORDERED: Insulin DETEMIR 100 UNIT/ML X5UNITS SUBQ SCH (09:00)
[2021-09-19] MEDS: Vancomycin 1,250 MG/262.5 ML IV.SOLN IVPB SCH (09:31)
[2021-09-19] MEDS: Insulin LISPRO 300 UNITS/3 ML VIAL SUBQ SCH ×4 (09:32→20:00)
[2021-09-19] MEDS: lisinopriL 10 MG TABLET PO SCH (09:33)
[2021-09-19] MEDS: Gabapentin 400 MG CAPSULE PO SCH ×3 (09:33→19:59)
[2021-09-19] MEDS ORDERED: Insulin DETEMIR 100 UNIT/ML X5UNITS SUBQ ONE (16:03)
[2021-09-19 17:06] LABS: Source,Synovial Fluid LEFT KNEE 1415
[2021-09-19 20:28] LABS: Appearance,Synovial Fluid Hazy (Clear-Hazy); Color,Synovial Fluid Straw (Straw)
[2021-09-19] MEDS ORDERED: Vancomycin 1,500 MG/265 ML IV.SOLN IVPB SCH (21:00)
[2021-09-20 05:33] LABS: Basophils # 0.1 K/mcL (0.0-0.2); Basophils % 0.4 %; Eosinophils # 0.3 K/mcL (0.0-0.6); Eosinophils % 2.7 %; Hematocrit 26.9 % (37.5-50.1); Hemoglobin 8.6 g/dL (12.9-16.9); Immature Granulocytes % 2.2 % (0-4); Lymphocytes # 2.1 K/mcL (0.6-4.6); Lymphocytes % 18.3 %; Mean Corpuscular Hemoglobin 25.8 pg (28.0-33.3); Mean Corpuscular Volume 80.8 fL (83.0-100.0); Mean Platelet Volume 9.8 fL (9.4-12.4); Monocytes # 1.1 K/mcL (0.0-1.3); Monocytes % 9.8 %; Platelet Count 395 K/mcL (140-400); Red Blood Count 3.33 M/mcL (4.19-5.50); Red Cell Distribution Width 13.3 % (11.5-14.5); Segmented Neutrophils % 66.6 %; White Blood Count 11.5 K/mcL (4.3-11.1)
[2021-09-20 05:42] LABS: Neutrophils # 7.7 K/mcL (1.6-8.9)
[2021-09-20 05:46] LABS: BUN/Creatinine Ratio 17 (6-26); Blood Urea Nitrogen 13 mg/dL (6-20); Calcium 8.3 mg/dL (8.6-10.3); Carbon Dioxide 30 mEq/L (23-29); Chloride 94 mEq/L (98-107); Glucose 276 mg/dL (70-105); Osmolality,Calculated 278 (280-300); Potassium 4.5 mEq/L (3.5-5.1); Sodium 129 mEq/L (136-145); eGFR For African Americans > 60 (> 60); eGFR For Non-African Americans > 60 (> 60)
[2021-09-20] MEDS: *HR* Heparin 5,000 UNIT/ML VIAL SQ SCH ×2 (06:07→17:08)
[2021-09-20] MEDS: Insulin LISPRO 300 UNITS/3 ML VIAL SUBQ SCH ×4 (08:28→23:25)
[2021-09-20] MEDS: Gabapentin 400 MG CAPSULE PO SCH ×3 (08:29→19:51)
[2021-09-20] MEDS: lisinopriL 10 MG TABLET PO SCH (08:29)
[2021-09-20] MEDS: Cefepime HCl 2,000 MG in 0.9 % Sodium Chloride 20 ML IVP SCH (08:30)
[2021-09-20] MEDS ORDERED: Vancomycin 1,750 MG/517.5 ML IV.SOLN IVPB SCH (09:00)
[2021-09-20] MEDS ORDERED: Insulin DETEMIR 100 UNIT/ML X5UNITS SUBQ SCH (09:00)
[2021-09-20] MEDS ORDERED: Lidocaine -MPF 1% 5 ML AMPUL INFILT ONE (10:45)
[2021-09-20] MEDS ORDERED: Insulin DETEMIR 100 UNIT/ML X5UNITS SUBQ ONE (13:02)
[2021-09-20] MEDS: 0.9 % Sodium Chloride 1,000 ML IVC SCH (13:44)
[2021-09-21] MEDS: *HR* Heparin 5,000 UNIT/ML VIAL SQ SCH ×2 (05:55→16:15)
[2021-09-21] MEDS: 0.9 % Sodium Chloride 1,000 ML IVC SCH (06:19)
[2021-09-21 07:01] LABS: Basophils # 0.1 K/mcL (0.0-0.2); Basophils % 0.5 %; Eosinophils # 0.3 K/mcL (0.0-0.6); Eosinophils % 3.2 %; Hematocrit 28.1 % (37.5-50.1); Hemoglobin 9.1 g/dL (12.9-16.9); Immature Granulocytes % 1.9 % (0-4); Lymphocytes # 2.2 K/mcL (0.6-4.6); Lymphocytes % 20.6 %; Mean Corpuscular HGB Conc 32.4 g/dL (31.6-35.5); Mean Corpuscular Hemoglobin 25.9 pg (28.0-33.3); Mean Corpuscular Volume 79.8 fL (83.0-100.0); Mean Platelet Volume 9.3 fL (9.4-12.4); Monocytes # 0.9 K/mcL (0.0-1.3); Monocytes % 8.8 %; Platelet Count 473 K/mcL (140-400); Red Blood Count 3.52 M/mcL (4.19-5.50); Red Cell Distribution Width 13.2 % (11.5-14.5); White Blood Count 10.7 K/mcL (4.3-11.1)
[2021-09-21 07:22] LABS: BUN/Creatinine Ratio 13 (6-26); Blood Urea Nitrogen 9 mg/dL (6-20); Calcium 8.5 mg/dL (8.6-10.3); Carbon Dioxide 33 mEq/L (23-29); Chloride 94 mEq/L (98-107); Glucose 184 mg/dL (70-105); Osmolality,Calculated 277 (280-300); Potassium 3.9 mEq/L (3.5-5.1); Sodium 132 mEq/L (136-145); eGFR For African Americans > 60 (> 60); eGFR For Non-African Americans > 60 (> 60)
[2021-09-21] MEDS ORDERED: Gadolinium Contrast Agent (WT Based) IV PRN (09:08)
[2021-09-21] MEDS: Insulin LISPRO 300 UNITS/3 ML VIAL SUBQ SCH ×4 (09:33→20:13)
[2021-09-21] MEDS: Gabapentin 400 MG CAPSULE PO SCH ×3 (09:34→20:12)
[2021-09-21] MEDS: lisinopriL 10 MG TABLET PO SCH (09:34)
[2021-09-21] MEDS: Insulin DETEMIR 100 UNIT/ML X5UNITS SUBQ SCH ×2 (09:37→13:23)
[2021-09-22 03:52] LABS: Basophils # 0.1 K/mcL (0.0-0.2); Basophils % 0.4 %; Eosinophils # 0.3 K/mcL (0.0-0.6); Eosinophils % 2.3 %; Hematocrit 26.9 % (37.5-50.1); Hemoglobin 8.7 g/dL (12.9-16.9); Immature Granulocytes % 1.5 % (0-4); Lymphocytes % 16.7 %; Mean Corpuscular HGB Conc 32.3 g/dL (31.6-35.5); Mean Corpuscular Hemoglobin 25.7 pg (28.0-33.3); Mean Corpuscular Volume 79.4 fL (83.0-100.0); Mean Platelet Volume 8.9 fL (9.4-12.4); Monocytes % 7.9 %; Neutrophils # 8.7 K/mcL (1.6-8.9); Platelet Count 501 K/mcL (140-400); Red Blood Count 3.39 M/mcL (4.19-5.50); Red Cell Distribution Width 13.1 % (11.5-14.5); Segmented Neutrophils % 71.2 %; White Blood Count 12.2 K/mcL (4.3-11.1)
[2021-09-22 04:10] LABS: BUN/Creatinine Ratio 15 (6-26); Blood Urea Nitrogen 10 mg/dL (6-20); Calcium 8.5 mg/dL (8.6-10.3); Carbon Dioxide 31 mEq/L (23-29); Chloride 92 mEq/L (98-107); Glucose 189 mg/dL (70-105); Osmolality,Calculated 272 (280-300); Potassium 4.1 mEq/L (3.5-5.1); Sodium 129 mEq/L (136-145); eGFR For African Americans > 60 (> 60); eGFR For Non-African Americans > 60 (> 60)
[2021-09-22] MEDS: *HR* Heparin 5,000 UNIT/ML VIAL SQ SCH ×2 (05:11→17:46)
[2021-09-22] MEDS ORDERED: 0.9 % Sodium Chloride 1,000 ML IVC SCH ×2 (07:45→12:02)
[2021-09-22] MEDS: Insulin DETEMIR 100 UNIT/ML X5UNITS SUBQ SCH (07:46)
[2021-09-22] MEDS: Insulin LISPRO 300 UNITS/3 ML VIAL SUBQ SCH ×4 (07:46→19:40)
[2021-09-22] MEDS: Gabapentin 400 MG CAPSULE PO SCH ×3 (07:48→19:35)
[2021-09-22] MEDS: lisinopriL 10 MG TABLET PO SCH (07:53)
[2021-09-22] MEDS ORDERED: *HR* FentaNYL (PF) 100 MCG/2 ML VIAL ONE ×2 (08:13→09:48)
[2021-09-22] MEDS ORDERED: *HR* Propofol 200 MG/20 ML VIAL IVP ONE ×2 (08:13→08:20)
[2021-09-22] MEDS ORDERED: Lidocaine -MPF 2% 5 ML VIAL ONE (08:13)
[2021-09-22] MEDS ORDERED: *HR* Midazolam HCl 2 MG/2 ML VIAL ONE (08:13)
[2021-09-22] MEDS ORDERED: Ondansetron 4 MG/2 ML VIAL ONE (08:13)
[2021-09-22] MEDS ORDERED: Famotidine 20 MG/2 ML VIAL ONE (09:07)
[2021-09-22] MEDS ORDERED: Ketamine HCL *QUVA* 50mg (1mL) SYRINGE ONE (09:23)
[2021-09-22] MEDS ORDERED: *HR* OxyCODONE Immed Rel 5 MG TABLET PO PRN (10:50)
[2021-09-22] MEDS ORDERED: *HR* Dextrose 50 % in Water (Syg) 50 ML SYRINGE IVP PRN (12:02)
[2021-09-22] MEDS ORDERED: Dextrose Gel 15 GM/37.5 ML TUBE PO PRN ×2 (12:02)
[2021-09-22] MEDS ORDERED: D5% in Water 1,000 ML IVC PRN (12:02)
[2021-09-22] MEDS ORDERED: Melatonin 3 MG TABLET PO PRN (12:02)
[2021-09-22] MEDS ORDERED: Ondansetron 4 MG/2 ML VIAL IVP PRN (12:02)
[2021-09-22] MEDS ORDERED: Perflutren Lipid Microsphere 1.3 ML in 0.9 % Sodium Chloride 8.7 ML IVP PRN (12:02)
[2021-09-22] MEDS ORDERED: Gadolinium Contrast Agent (WT Based) IV PRN (12:02)
[2021-09-22] MEDS ORDERED: Acetaminophen 325 MG TABLET PO PRN (12:02)
[2021-09-22] MEDS ORDERED: Naloxone 0.4 MG/ML INJ IVP PRN (12:02)
[2021-09-22] MEDS ORDERED: Insulin DETEMIR 100 UNIT/ML X5UNITS SUBQ SCH (14:00)
[2021-09-22] MEDS: levoFLOXacin 750 MG TABLET PO SCH (17:51)
[2021-09-22] MEDS: DAPTOmycin 600 MG in 0.9 % Sodium Chloride 100 ML IVPB SCH (19:39)
[2021-09-23] MEDS: *HR* Heparin 5,000 UNIT/ML VIAL SQ SCH ×2 (04:50→17:44)
[2021-09-23 05:16] LABS: Basophils % 0.3 %; Eosinophils # 0.2 K/mcL (0.0-0.6); Eosinophils % 1.6 %; Hematocrit 27.7 % (37.5-50.1); Hemoglobin 8.9 g/dL (12.9-16.9); Mean Corpuscular HGB Conc 32.1 g/dL (31.6-35.5); Mean Corpuscular Hemoglobin 25.9 pg (28.0-33.3); Mean Corpuscular Volume 80.5 fL (83.0-100.0); Mean Platelet Volume 8.9 fL (9.4-12.4); Monocytes % 7.3 %; Neutrophils # 10.2 K/mcL (1.6-8.9); Platelet Count 537 K/mcL (140-400); Red Blood Count 3.44 M/mcL (4.19-5.50); Red Cell Distribution Width 13.1 % (11.5-14.5); Segmented Neutrophils % 74.8 %; White Blood Count 13.6 K/mcL (4.3-11.1)
[2021-09-23 05:37] LABS: BUN/Creatinine Ratio 15 (6-26); Blood Urea Nitrogen 10 mg/dL (6-20); Calcium 8.6 mg/dL (8.6-10.3); Carbon Dioxide 31 mEq/L (23-29); Chloride 94 mEq/L (98-107); Glucose 198 mg/dL (70-105); Osmolality,Calculated 277 (280-300); Potassium 4.3 mEq/L (3.5-5.1); Sodium 131 mEq/L (136-145); eGFR For African Americans > 60 (> 60); eGFR For Non-African Americans > 60 (> 60)
[2021-09-23] MEDS: Gabapentin 400 MG CAPSULE PO SCH ×3 (08:47→19:44)
[2021-09-23] MEDS: Insulin DETEMIR 100 UNIT/ML X5UNITS SUBQ SCH (08:47)
[2021-09-23] MEDS: lisinopriL 10 MG TABLET PO SCH (08:47)
[2021-09-23] MEDS: Insulin LISPRO 300 UNITS/3 ML VIAL SUBQ SCH ×4 (08:48→19:49)
[2021-09-23] MEDS ORDERED: Insulin DETEMIR 100 UNIT/ML X5UNITS SUBQ SCH (09:00)
[2021-09-23] MEDS: levoFLOXacin 750 MG TABLET PO SCH (17:44)
[2021-09-23] MEDS: DAPTOmycin 600 MG in 0.9 % Sodium Chloride 100 ML IVPB SCH (19:45)
[2021-09-24] MEDS: *HR* Heparin 5,000 UNIT/ML VIAL SQ SCH ×2 (06:06→17:00)
[2021-09-24 06:28] LABS: Basophils % 0.3 %; Eosinophils # 0.3 K/mcL (0.0-0.6); Eosinophils % 2.5 %; Hematocrit 29.7 % (37.5-50.1); Hemoglobin 9.4 g/dL (12.9-16.9); Immature Granulocytes % 0.8 % (0-4); Lymphocytes # 2.2 K/mcL (0.6-4.6); Lymphocytes % 16.6 %; Mean Corpuscular HGB Conc 31.6 g/dL (31.6-35.5); Mean Corpuscular Hemoglobin 25.7 pg (28.0-33.3); Mean Corpuscular Volume 81.1 fL (83.0-100.0); Mean Platelet Volume 8.6 fL (9.4-12.4); Monocytes # 0.9 K/mcL (0.0-1.3); Monocytes % 6.7 %; Neutrophils # 9.5 K/mcL (1.6-8.9); Platelet Count 542 K/mcL (140-400); Red Blood Count 3.66 M/mcL (4.19-5.50); Red Cell Distribution Width 13.2 % (11.5-14.5); Segmented Neutrophils % 73.1 %; White Blood Count 13.1 K/mcL (4.3-11.1)
[2021-09-24 06:52] LABS: BUN/Creatinine Ratio 18 (6-26); Blood Urea Nitrogen 12 mg/dL (6-20); Calcium 8.8 mg/dL (8.6-10.3); Carbon Dioxide 31 mEq/L (23-29); Chloride 95 mEq/L (98-107); Glucose 133 mg/dL (70-105); Osmolality,Calculated 276 (280-300); Potassium 4.2 mEq/L (3.5-5.1); Sodium 132 mEq/L (136-145); eGFR For African Americans > 60 (> 60); eGFR For Non-African Americans > 60 (> 60)
[2021-09-24] MEDS: Insulin LISPRO 300 UNITS/3 ML VIAL SUBQ SCH ×4 (07:45→20:59)
[2021-09-24] MEDS: Insulin DETEMIR 100 UNIT/ML X5UNITS SUBQ SCH (10:22)
[2021-09-24] MEDS: Gabapentin 400 MG CAPSULE PO SCH ×3 (10:22→20:56)
[2021-09-24] MEDS: lisinopriL 10 MG TABLET PO SCH (10:26)
[2021-09-24] MEDS: levoFLOXacin 750 MG TABLET PO SCH (16:59)
[2021-09-24] MEDS: DAPTOmycin 600 MG in 0.9 % Sodium Chloride 100 ML IVPB SCH (20:56)
[2021-09-25] MEDS: *HR* Heparin 5,000 UNIT/ML VIAL SQ SCH ×2 (05:23→18:06)
[2021-09-25 05:35] LABS: Basophils % 0.3 %; Eosinophils # 0.3 K/mcL (0.0-0.6); Eosinophils % 2.5 %; Hematocrit 28.8 % (37.5-50.1); Hemoglobin 9.3 g/dL (12.9-16.9); Lymphocytes % 17.6 %; Mean Corpuscular HGB Conc 32.3 g/dL (31.6-35.5); Mean Corpuscular Hemoglobin 26.1 pg (28.0-33.3); Mean Corpuscular Volume 80.9 fL (83.0-100.0); Mean Platelet Volume 8.8 fL (9.4-12.4); Monocytes # 0.8 K/mcL (0.0-1.3); Monocytes % 7.3 %; Neutrophils # 8.2 K/mcL (1.6-8.9); Platelet Count 525 K/mcL (140-400); Red Blood Count 3.56 M/mcL (4.19-5.50); Red Cell Distribution Width 13.3 % (11.5-14.5); Segmented Neutrophils % 71.3 %; White Blood Count 11.4 K/mcL (4.3-11.1)
[2021-09-25 05:54] LABS: Alanine Aminotransferase 25 Units/L (7-52); Albumin 2.7 g/dL (3.5-5.7); Albumin/Globulin Ratio 0.5 (1.1-2.2); Alkaline Phosphatase 66 Units/L (34-104); Aspartate Amino Transferase 23 Units/L (13-39); BUN/Creatinine Ratio 22 (6-26); Bilirubin,Total 0.3 mg/dL (0.3-1.0); Blood Urea Nitrogen 17 mg/dL (6-20); Calcium 8.9 mg/dL (8.6-10.3); Carbon Dioxide 29 mEq/L (23-29); Chloride 98 mEq/L (98-107); Globulin 5.1 g/dL (2.4-3.5); Glucose 220 mg/dL (70-105); Osmolality,Calculated 276 (280-300); Potassium 4.4 mEq/L (3.5-5.1); Sodium 129 mEq/L (136-145); Total Protein 7.8 g/dL (6.4-8.9); eGFR For African Americans > 60 (> 60); eGFR For Non-African Americans > 60 (> 60)
[2021-09-25] MEDS: lisinopriL 10 MG TABLET PO SCH (08:29)
[2021-09-25] MEDS: Gabapentin 400 MG CAPSULE PO SCH ×3 (08:29→19:45)
[2021-09-25] MEDS: Insulin DETEMIR 100 UNIT/ML X5UNITS SUBQ SCH (08:29)
[2021-09-25] MEDS: Insulin LISPRO 300 UNITS/3 ML VIAL SUBQ SCH ×4 (08:30→20:05)
[2021-09-25] MEDS: levoFLOXacin 750 MG TABLET PO SCH (18:06)
[2021-09-25] MEDS: DAPTOmycin 600 MG in 0.9 % Sodium Chloride 100 ML IVPB SCH (19:55)
[2021-09-26] MEDS: *HR* Heparin 5,000 UNIT/ML VIAL SQ SCH ×2 (04:55→18:00)
[2021-09-26 05:15] LABS: Basophils % 0.4 %; Eosinophils # 0.2 K/mcL (0.0-0.6); Eosinophils % 2.3 %; Hematocrit 28.5 % (37.5-50.1); Hemoglobin 9.1 g/dL (12.9-16.9); Immature Granulocytes % 0.6 % (0-4); Lymphocytes % 20.2 %; Mean Corpuscular HGB Conc 31.9 g/dL (31.6-35.5); Mean Corpuscular Hemoglobin 26.1 pg (28.0-33.3); Mean Corpuscular Volume 81.9 fL (83.0-100.0); Mean Platelet Volume 9.1 fL (9.4-12.4); Monocytes # 0.7 K/mcL (0.0-1.3); Monocytes % 6.8 %; Neutrophils # 7.1 K/mcL (1.6-8.9); Platelet Count 555 K/mcL (140-400); Red Blood Count 3.48 M/mcL (4.19-5.50); Red Cell Distribution Width 13.3 % (11.5-14.5); Segmented Neutrophils % 69.7 %; White Blood Count 10.1 K/mcL (4.3-11.1)
[2021-09-26 05:42] LABS: Alanine Aminotransferase 21 Units/L (7-52); Albumin 2.8 g/dL (3.5-5.7); Albumin/Globulin Ratio 0.6 (1.1-2.2); Alkaline Phosphatase 70 Units/L (34-104); Aspartate Amino Transferase 15 Units/L (13-39); BUN/Creatinine Ratio 23 (6-26); Bilirubin,Total 0.3 mg/dL (0.3-1.0); Blood Urea Nitrogen 18 mg/dL (6-20); Calcium 8.5 mg/dL (8.6-10.3); Carbon Dioxide 30 mEq/L (23-29); Chloride 94 mEq/L (98-107); Globulin 4.6 g/dL (2.4-3.5); Glucose 278 mg/dL (70-105); Osmolality,Calculated 280 (280-300); Potassium 4.5 mEq/L (3.5-5.1); Sodium 129 mEq/L (136-145); Total Protein 7.4 g/dL (6.4-8.9); eGFR For African Americans > 60 (> 60); eGFR For Non-African Americans > 60 (> 60)
[2021-09-26] MEDS: lisinopriL 10 MG TABLET PO SCH (09:49)
[2021-09-26] MEDS: Gabapentin 400 MG CAPSULE PO SCH ×3 (09:49→20:12)
[2021-09-26] MEDS: Insulin DETEMIR 100 UNIT/ML X5UNITS SUBQ SCH ×2 (09:57→23:48)
[2021-09-26] MEDS: Insulin LISPRO 300 UNITS/3 ML VIAL SUBQ SCH ×2 (09:57→20:01)
[2021-09-26] MEDS ORDERED: *HR* Midazolam HCl 2 MG/2 ML VIAL ONE (12:13)
[2021-09-26] MEDS ORDERED: Lidocaine -MPF 2% 5 ML VIAL ONE (12:13)
[2021-09-26] MEDS ORDERED: Ondansetron 4 MG/2 ML VIAL ONE (12:13)
[2021-09-26] MEDS ORDERED: *HR* FentaNYL (PF) 100 MCG/2 ML VIAL ONE (12:13)
[2021-09-26] MEDS ORDERED: *HR* Propofol 200 MG/20 ML VIAL IVP ONE (12:14)
[2021-09-26] MEDS ORDERED: Dextrose Gel 15 GM/37.5 ML TUBE PO PRN ×2 (14:09)
[2021-09-26] MEDS ORDERED: Melatonin 3 MG TABLET PO PRN (14:09)
[2021-09-26] MEDS ORDERED: Naloxone 0.4 MG/ML INJ IVP PRN (14:09)
[2021-09-26] MEDS ORDERED: D5% in Water 1,000 ML IVC PRN (14:09)
[2021-09-26] MEDS ORDERED: Perflutren Lipid Microsphere 1.3 ML in 0.9 % Sodium Chloride 8.7 ML IVP PRN (14:09)
[2021-09-26] MEDS ORDERED: Acetaminophen 325 MG TABLET PO PRN (14:09)
[2021-09-26] MEDS ORDERED: Ondansetron 4 MG/2 ML VIAL IVP PRN (14:09)
[2021-09-26] MEDS ORDERED: *HR* Dextrose 50 % in Water (Syg) 50 ML SYRINGE IVP PRN (14:09)
[2021-09-26] MEDS ORDERED: levoFLOXacin 750 MG TABLET PO SCH (18:00)
[2021-09-26] MEDS ORDERED: DAPTOmycin 600 MG in 0.9 % Sodium Chloride 100 ML IVPB SCH (19:00)
[2021-09-26] MEDS ORDERED: Insulin LISPRO 300 UNITS/3 ML VIAL SUBQ SCH (21:00)
[2021-09-26] MEDS ORDERED: Insulin DETEMIR 100 UNIT/ML X5UNITS SUBQ SCH (21:00)
[2021-09-27] MEDS: *HR* Heparin 5,000 UNIT/ML VIAL SQ SCH (06:01)
[2021-09-27 07:02] LABS: Basophils % 0.2 %; Eosinophils # 0.2 K/mcL (0.0-0.6); Eosinophils % 1.6 %; Hematocrit 29.5 % (37.5-50.1); Hemoglobin 9.6 g/dL (12.9-16.9); Immature Granulocytes % 0.3 % (0-4); Lymphocytes # 2.8 K/mcL (0.6-4.6); Lymphocytes % 28.6 %; Mean Corpuscular HGB Conc 32.5 g/dL (31.6-35.5); Mean Corpuscular Hemoglobin 26.4 pg (28.0-33.3); Mean Platelet Volume 8.9 fL (9.4-12.4); Monocytes # 0.7 K/mcL (0.0-1.3); Monocytes % 6.9 %; Platelet Count 578 K/mcL (140-400); Red Blood Count 3.64 M/mcL (4.19-5.50); Red Cell Distribution Width 13.2 % (11.5-14.5); Segmented Neutrophils % 62.4 %; White Blood Count 9.7 K/mcL (4.3-11.1)
[2021-09-27 07:18] LABS: BUN/Creatinine Ratio 24 (6-26); Blood Urea Nitrogen 16 mg/dL (6-20); Calcium 8.9 mg/dL (8.6-10.3); Carbon Dioxide 29 mEq/L (23-29); Chloride 96 mEq/L (98-107); Glucose 227 mg/dL (70-105); Magnesium 1.5 mg/dL (1.6-2.6); Osmolality,Calculated 282 (280-300); Phosphorous 3.2 mg/dL (2.7-4.5); Sodium 132 mEq/L (136-145); eGFR For African Americans > 60 (> 60); eGFR For Non-African Americans > 60 (> 60)
[2021-09-27] MEDS ORDERED: lisinopriL 10 MG TABLET PO SCH (09:00)
[2021-09-27] MEDS: Insulin DETEMIR 100 UNIT/ML X5UNITS SUBQ SCH (09:56)
[2021-09-27] MEDS: Gabapentin 400 MG CAPSULE PO SCH (09:56)
[2021-09-27] MEDS: Insulin LISPRO 300 UNITS/3 ML VIAL SUBQ SCH ×2 (09:57→12:48)
[2021-09-27 10:14] VITALS: BP 132/85; PULSE 92; TEMP 97.6; O2SAT 98
[2021-09-27] MEDS ORDERED: Magnesium Oxide 400 MG TABLET PO ONE (13:45)
== END 2021-09-27 15:17 | disposition home health service (06) | DRG 710 ==
LOC: 4WAOSI → SUATTDRO 23:02
PROVIDERS: ADMIT Internal Medicine; ATTEND Internal Medicine
PROC: IRDRAIN (2021-09-26 12:00)